=== PATIENT | female | born 1985 ===

== ENCOUNTER 2023-11-09 05:46 | Inpatient (IN) | payer OTHER ==
[~2023-11-09] VITALS: Ht 157.5 cm; Wt 86.2 kg
[2023-11-09] VITALS (8 sets, daily range): BP systolic 96–136; BP diastolic 62–79
[2023-11-09] MEDS ORDERED: IRON236 MG PO (07:23)
[2023-11-09] MEDS ORDERED: PRENATAL TABLE1 EAC1 PO (07:23)
[2023-11-09 07:28] LABS: HEMOGLOBIN 11.1 g/dL (12.0-15.00); MEAN CELL VOLUME 82.4 fL (80.00-100.00); MEAN CORPUSCULAR HEMOGLOBIN 27.8 pg (27.00-32.0); MEAN CORPUSCULAR HGB CONC 33.7 g/dl (32.0-36.0); PLATELET COUNT 246 K/uL (150-450); RED CELL DISTRIBUTION WIDTH 14.8 % (11.5-14.5)
[2023-11-09 07:29] LABS: PH,URINE 6.5 (5.0-8.0); URINE APPEARANCE Clear; URINE BILIRRUBIN Negative (NEGATIVE); URINE BLOOD Negative; URINE COLOR Yellow; URINE GLUCOSE Negative (NEGATIVE); URINE KETONE Negative (NEGATIVE); URINE LEUKOCYTE Negative; URINE NITRATE Negative; URINE PROTEIN Negative (NEGATIVE); URINE UROBILINOGEN 0.2 E.U./dl
[2023-11-09 07:45] LABS: URINE BACTERIA 476.2 uL (0.0-1933); URINE WBC 3.5 uL (0.0-23.2)
[2023-11-09] MEDS ORDERED: RINGERS SOLUTION,LACTATED 1,000 ML IV SCH (07:45)
[2023-11-09 08:01] LABS: INR 0.95; PARTIAL THROMBOPLASTIN TIME 26.8 SECONDS (22.0-34.0); PROTHROMBIN TIME 10.4 SECONDS (9.0-11.5)
[2023-11-09 08:05] LABS: ALBUMIN 2.9 gm/dL (3.4-5.0); BILIRUBIN TOTAL 0.18 mg/dL (0.3-1.2); CALCIUM 8.7 mg/dL (8.5-10.1); CREATININE SERUM 0.52 mg/dL (0.55-1.02); GFR 133.43; GLOBULINA 3.5 G/DL (2.4-3.5); POTASSIUM 4.7 mEq/L (3.5-5.1); TOTAL PROTEIN 6.4 gm/dL (6.4-8.2)
[2023-11-09] MEDS ORDERED: LIDOCAINE HCL 1% 10ML VIAL ONE (09:23)
[2023-11-09] MEDS ORDERED: CHLORHEXIDINE GLUCONATE 120 ML BOTTLE TOP ONE ×2 (09:23→15:15)
[2023-11-09] MEDS ORDERED: OXYTOCIN 20 UNITS/1000ML RL PIGGYBAG IV ONE (09:23)
[2023-11-09] MEDS ORDERED: ERYTHROMYCIN BASE OPHT 1GM EACH TUBE OP ONE ×2 (09:23→15:15)
[2023-11-09] MEDS ORDERED: OXYTOCIN 500 ML IV SCH (09:30)
[2023-11-09] MEDS ORDERED: MEPERIDINE HCL/PF 50 MG/ML VIAL IV ONE (12:00)
[2023-11-09] MEDS ORDERED: PROMETHAZINE HCL 25 MG/ML AMPUL IV ONE (12:00)
[2023-11-09] MEDS ORDERED: IBUprofen 600 MG TABLET PO PRN (15:00)
[2023-11-09] MEDS ORDERED: LIDOCAINE HCL 1% 10ML VIAL IJ ONE (15:15)
[2023-11-09] MEDS ORDERED: OXYTOCIN 1,000 ML IV SCH (15:15)
[2023-11-10] VITALS: BP 104/69
[2023-11-10 08:00] VITALS: BP 103/72
[2023-11-10 19:38] VITALS: BP 118/77
[2023-11-11] VITALS: BP 105/70
[2023-11-11 08:00] VITALS: BP 113/64
== END 2023-11-11 15:08 | disposition home or self-care (01) | DRG 807 ==
LOC: LDR 05:46 → OB/GYN 15:34
PROVIDERS: ADMIT Specialist; ATTEND Specialist
PROC: 10E0XZZ Delivery of Products of Conception, External Approach (ICD-10-PCS; principal; 2023-11-09)
PROC: 0HQ9XZZ Repair Perineum Skin, External Approach (ICD-10-PCS; 2023-11-09)
PROC: 4A1HXCZ Monitoring of Products of Conception, Cardiac Rate, External Approach (ICD-10-PCS; 2023-11-09)
DX: O70.0 First degree perineal laceration during delivery (principal); Z37.0 Single live birth; Z3A.39 39 weeks gestation of pregnancy; Z20.822 Contact with and (suspected) exposure to COVID-19